=== PATIENT | female | born 1955 | race Two or more races ===

== ENCOUNTER 2025-02-18 10:28 | Inpatient (IN) | payer MEDICARE ==
[~2025-02-18] VITALS: Ht 157.5 cm; Wt 82.1 kg
[2025-02-18 11:15] LABS: PLATELET COUNT (AUTO) 311 K/uL (150-450); RED BLOOD CELL COUNT(AUTO) 4.63 MIL/uL (4.0-5.2); RED CELL DISTRIBUTION WIDTH 14.6 % (11.5-15.0); WHITE BLOOD COUNT (AUTO) 8.6 K/uL (4.3-11.0)
[2025-02-18] MEDS ORDERED: LORA2TAB95 PO (11:19)
[2025-02-18] MEDS ORDERED: HYDR-3980 PO (11:19)
[2025-02-18 11:23] LABS: CALCIUM, SERUM 9.6 mg/dL (8.5-10.1); CREATININE 0.8 mg/dL (0.6-1.3); SODIUM SERUM 144 mmol/L (136-145); UREA NITROGEN, BLOOD 18 mg/dL (7-18)
[2025-02-18] MEDS ORDERED: METOPROLOL TARTRATE 50 MG TABLET ONE (11:28)
[2025-02-18] MEDS ORDERED: METOPROLOL TARTRATE INJ 5 MG/5 ML AMPUL ONE (11:28)
[2025-02-18] MEDS ORDERED: METOPROLOL TARTRATE 25 MG TABLET PO ONE (11:30)
[2025-02-18] MEDS: METOPROLOL TARTRATE INJ 5 MG/5 ML AMPUL IV ONE (11:33)
[2025-02-18 11:35] LABS: ASPARTATE AMINOTRANSFERASE 26 U/L (15-37); NT-PRO BNP 510 pg/mL (0-125); TOTAL PROTEIN, SERUM 6.8 g/dL (6.4-8.2)
[2025-02-18] MEDS ORDERED: METOPROLOL TARTRATE 25 MG TABLET ONE (11:45)
[2025-02-18] MEDS: METOPROLOL TARTRATE 25 MG TABLET PO ONE (11:45)
[2025-02-18] MEDS ORDERED: MORPHINE SULFATE INJ 2 MG/ML DISP.SYRIN ONE (11:46)
[2025-02-18] MEDS: MORPHINE SULFATE INJ 2 MG/ML DISP.SYRIN IV ONE (11:50)
[2025-02-18] MEDS ORDERED: ONDANSETRON HCL/PF 4 MG/2 ML VIAL IVP PRN (13:30)
[2025-02-18] MEDS ORDERED: ACETAMINOPHEN 325 MG TABLET PO PRN (13:30)
[2025-02-18] MEDS: ENOXAPARIN SODIUM 40 MG/0.4 ML DISP.SYRIN SQ SCH (15:23)
[2025-02-18] MEDS: HYDROCODONE/APAP 10/325MG TABLET PO PRN (15:24)
[2025-02-18] MEDS: MORPHINE SULFATE INJ 2 MG/ML DISP.SYRIN IV PRN (17:34)
[2025-02-18] MEDS: METHOCARBAMOL (500MG) 500 MG TABLET PO SCH (17:34)
[2025-02-18 20:00] VITALS: BP 111/59; TEMP 98.8; O2SAT 94
[2025-02-18] MEDS: MORPHINE SULFATE INJ 4 MG/ML DISP.SYRIN IV PRN (22:12)
[2025-02-19] VITALS: BP_SYST 102; BP_SYST 111; BP_DIAS 59; BP_DIAS 72; TEMP 97.5; TEMP 98.8; O2SAT 94; O2SAT 95
[2025-02-19 04:00] VITALS: BP 108/75; TEMP 98.3; O2SAT 96
[2025-02-19 07:11] LABS: PLATELET COUNT (AUTO) 278 K/uL (150-450); RED BLOOD CELL COUNT(AUTO) 4.11 MIL/uL (4.0-5.2); RED CELL DISTRIBUTION WIDTH 14.7 % (11.5-15.0); WHITE BLOOD COUNT (AUTO) 5.3 K/uL (4.3-11.0)
[2025-02-19 07:17] LABS: CALCIUM, SERUM 9.1 mg/dL (8.5-10.1); CREATININE 0.5 mg/dL (0.6-1.3); PHOSPHORUS 2.9 mg/dL (2.5-4.9); SODIUM SERUM 142 mmol/L (136-145); UREA NITROGEN, BLOOD 16 mg/dL (7-18)
[2025-02-19 07:39] LABS: APPEARANCE,URINE SLIGHTLY CLOUDY (CLEAR); BLOOD, URINE NEGATIVE Ery/uL (NEGATIVE); LEUKOCYTE ESTERASE ,URINE TRACE (NEGATIVE); NITRITE, URINE NEGATIVE (NEGATIVE); UGLUCOSE NEGATIVE (NEGATIVE)
[2025-02-19 07:54] LABS: ADD URINE CULTURE YES
[2025-02-19 07:55] LABS: CALCIUM OXALATE CRYSTALS,UR Many /HPF (None Seen)
[2025-02-19 08:00] VITALS: BP 126/54; TEMP 98.4; O2SAT 98
[2025-02-19 08:03] LABS: LDL 56 mg/dL (0-99)
[2025-02-19] MEDS: FUROSEMIDE 40 MG/4 ML VIAL IV SCH (08:18)
[2025-02-19] MEDS: POTASSIUM CHLORIDE 20 MEQ TAB.PRT.SR PO SCH (08:18)
[2025-02-19] MEDS: PANTOPRAZOLE 40 MG TABLET.DR PO SCH (08:18)
[2025-02-19] MEDS: ATORVASTATIN 10 MG TABLET PO SCH (08:19)
[2025-02-19] MEDS: ASPIRIN 81 MG TAB.CHEW PO SCH (08:19)
[2025-02-19] MEDS: ENOXAPARIN SODIUM 80 MG/0.8 ML DISP.SYRIN SQ SCH (08:20)
[2025-02-19] MEDS ORDERED: POLYETHYLENE GLYCOL 3350 17 GM POWD.PACK PO PRN (09:00)
[2025-02-19] MEDS: DOCUSATE SODIUM 100 MG CAPSULE PO SCH (10:11)
[2025-02-19] MEDS: CEFTRIAXONE 1 G in IV D5W 50 ML IV SCH (10:12)
[2025-02-19 12:00] VITALS: BP 100/69; TEMP 99.5; O2SAT 94
[2025-02-19] MEDS: DIGOXIN INJ 0.5 MG/2 ML AMPUL IV SCH (12:43)
[2025-02-19 16:00] VITALS: BP 126/72; TEMP 98.6; O2SAT 94
[2025-02-19] MEDS: LORAZEPAM 1 MG TABLET PO PRN (16:43)
[2025-02-19 20:00] VITALS: BP 106/90; TEMP 98.4; O2SAT 93
[2025-02-20] VITALS: BP 107/88; TEMP 99; O2SAT 93
[2025-02-20 04:00] VITALS: BP 105/71; TEMP 98.6; O2SAT 93
[2025-02-20 06:13] LABS: PLATELET COUNT (AUTO) 353 K/uL (150-450); RED BLOOD CELL COUNT(AUTO) 4.46 MIL/uL (4.0-5.2); RED CELL DISTRIBUTION WIDTH 14.2 % (11.5-15.0); WHITE BLOOD COUNT (AUTO) 5.6 K/uL (4.3-11.0)
[2025-02-20 07:31] LABS: ASPARTATE AMINOTRANSFERASE 26 U/L (15-37); CALCIUM, SERUM 9.3 mg/dL (8.5-10.1); CREATININE 0.6 mg/dL (0.6-1.3); PHOSPHORUS 3.4 mg/dL (2.5-4.9); SODIUM SERUM 139 mmol/L (136-145); TOTAL PROTEIN, SERUM 6.3 g/dL (6.4-8.2); UREA NITROGEN, BLOOD 14 mg/dL (7-18)
[2025-02-20 08:00] VITALS: BP 132/84; TEMP 98; O2SAT 93
[2025-02-20] MEDS: METOPROLOL TARTRATE 25 MG TABLET PO SCH (09:15)
[2025-02-20 12:00] VITALS: BP 114/69; TEMP 98.3; O2SAT 94
[2025-02-20] MEDS: DIGOXIN 0.25 MG TABLET PO SCH (12:04)
[2025-02-20 16:00] VITALS: BP 124/58; TEMP 97.9; O2SAT 95
[2025-02-20 22:00] VITALS: BP 132/72; TEMP 98.2; O2SAT 96
[2025-02-21] VITALS (9 sets, daily range): BP systolic 121–128; BP diastolic 60–96; TEMP 98.1–99.1; O2SAT 96–98
[2025-02-21 06:32] LABS: PLATELET COUNT (AUTO) 344 K/uL (150-450); RED BLOOD CELL COUNT(AUTO) 4.45 MIL/uL (4.0-5.2); RED CELL DISTRIBUTION WIDTH 14.7 % (11.5-15.0); WHITE BLOOD COUNT (AUTO) 4.4 K/uL (4.3-11.0)
[2025-02-21 06:38] LABS: INR 1.04 (0.91-1.10)
[2025-02-21 07:07] LABS: CALCIUM, SERUM 9.6 mg/dL (8.5-10.1); CREATININE 0.6 mg/dL (0.6-1.3); PHOSPHORUS 3.5 mg/dL (2.5-4.9); SODIUM SERUM 136.0 mmol/L (136-145); UREA NITROGEN, BLOOD 13.0 mg/dL (7-18)
[2025-02-21] MEDS: HEPARIN SODIUM, PORCINE 5000 UNITS/1 ML VIAL SQ SCH (08:11)
[2025-02-21] MEDS: METOPROLOL TARTRATE 25 MG TABLET PO SCH (09:31)
[2025-02-22] VITALS: BP 148/80; TEMP 97.9; O2SAT 94
[2025-02-22 04:00] VITALS: BP 118/64; TEMP 97.9; O2SAT 94
[2025-02-22 06:51] LABS: PLATELET COUNT (AUTO) 337 K/uL (150-450); RED BLOOD CELL COUNT(AUTO) 4.33 MIL/uL (4.0-5.2); RED CELL DISTRIBUTION WIDTH 14.3 % (11.5-15.0); WHITE BLOOD COUNT (AUTO) 5.2 K/uL (4.3-11.0)
[2025-02-22 07:04] LABS: CALCIUM, SERUM 9.5 mg/dL (8.5-10.1); CREATININE 0.6 mg/dL (0.6-1.3); PHOSPHORUS 3.4 mg/dL (2.5-4.9); SODIUM SERUM 137.0 mmol/L (136-145); UREA NITROGEN, BLOOD 10.0 mg/dL (7-18)
[2025-02-22] MEDS ORDERED: CEFAZOLIN 1 GM ONE (07:28)
[2025-02-22] MEDS ORDERED: TRIAMCINOLONE ACETONIDE SUSP 40 MG/ML 1 ML ONE (07:28)
[2025-02-22] MEDS ORDERED: HEMOSTATIC MATRIX 8 ML 1 EACH PAD MC ONE ×2 (07:28→11:42)
[2025-02-22] MEDS ORDERED: LIDOCAINE 0.5%-EPI 1:200,000 50 ML VIAL ONE (07:28)
[2025-02-22] MEDS ORDERED: MIDAZOLAM HCL 2 MG/2ML VIAL ONE (07:38)
[2025-02-22] MEDS ORDERED: FENTANYL PF 250MCG/5ML AMPUL ONE (07:38)
[2025-02-22] MEDS ORDERED: SUGAMMADEX SODIUM 200 MG/2 ML VIAL IV ONE (07:38)
[2025-02-22] MEDS ORDERED: ROCURONIUM BROMIDE 50 MG/5 ML ONE (07:39)
[2025-02-22] MEDS ORDERED: HEPARIN SODIUM, PORCINE 5000 UNITS/1 ML VIAL ONE (07:42)
[2025-02-22 08:00] VITALS: BP 113/76; TEMP 98.1; O2SAT 98
[2025-02-22] MEDS: POTASSIUM CL. PREMIX PERIPHER. 50 ML IV SCH (09:15)
[2025-02-22] MEDS ORDERED: LABETALOL HCL IV 100MG VIAL ONE (11:49)
[2025-02-22 12:00] VITALS: BP 113/76; TEMP 98.1; O2SAT 98
[2025-02-22] MEDS ORDERED: VANCOMYCIN 1 GM VIAL ONE (13:59)
[2025-02-22] MEDS ORDERED: FENTANYL PF 100MCG/2ML AMPUL ONE (15:06)
[2025-02-22] MEDS ORDERED: HYDROMORPHONE 1 MG/1 ML DISP.SYRIN ONE (15:31)
[2025-02-22 16:00] VITALS: BP 121/52; TEMP 97.3; O2SAT 98
[2025-02-22] MEDS ORDERED: ACETAMINOPHEN 325 MG TABLET PO PRN (17:00)
[2025-02-22] MEDS: IV NS W/20MEQ KCL 1L IV PRN (17:48)
[2025-02-22 20:00] VITALS: BP 123/16; TEMP 97.7; O2SAT 96
[2025-02-22] MEDS: HYDROMORPHONE 1 MG/1 ML DISP.SYRIN IV PRN (20:19)
[2025-02-23] VITALS: BP 121/65; TEMP 97.7; O2SAT 98
[2025-02-23 04:00] VITALS: BP 136/82; TEMP 98; O2SAT 99
[2025-02-23 07:18] LABS: PLATELET COUNT (AUTO) 300 K/uL (150-450); RED BLOOD CELL COUNT(AUTO) 3.67 MIL/uL (4.0-5.2); RED CELL DISTRIBUTION WIDTH 14.9 % (11.5-15.0); WHITE BLOOD COUNT (AUTO) 10.9 K/uL (4.3-11.0)
[2025-02-23 07:44] LABS: CALCIUM, SERUM 8.3 mg/dL (8.5-10.1); CREATININE 0.5 mg/dL (0.6-1.3); PHOSPHORUS 3.2 mg/dL (2.5-4.9); SODIUM SERUM 134.0 mmol/L (136-145); UREA NITROGEN, BLOOD 14.0 mg/dL (7-18)
[2025-02-23 08:00] VITALS: BP 133/83; TEMP 98.1; O2SAT 99
[2025-02-23] MEDS: HEPARIN SODIUM, PORCINE 5000 UNITS/1 ML VIAL SQ SCH (09:10)
[2025-02-23 12:00] VITALS: BP 141/82; TEMP 97.9; O2SAT 99
[2025-02-23 16:00] VITALS: BP 139/62; TEMP 98.8; O2SAT 98
[2025-02-23] MEDS: IV NS W/20MEQ KCL 1L IV SCH (17:27)
[2025-02-23] MEDS: MAG HYDROX/AL HYDROX/SIMETH 30 ML UDC PO PRN (17:34)
[2025-02-23 20:00] VITALS: BP 133/68; TEMP 98.2; O2SAT 99
[2025-02-24] VITALS (7 sets, daily range): BP systolic 121–153; BP diastolic 55–78; TEMP 97.9–98.6; O2SAT 94–100
[2025-02-24 07:48] LABS: CALCIUM, SERUM 8.5 mg/dL (8.5-10.1); CREATININE 0.5 mg/dL (0.6-1.3); SODIUM SERUM 130.0 mmol/L (136-145); UREA NITROGEN, BLOOD 10.0 mg/dL (7-18)
[2025-02-24] MEDS: SPIRONOLACTONE 25 MG TABLET PO SCH (10:04)
[2025-02-24] MEDS: METOPROLOL TARTRATE 25 MG TABLET PO SCH (10:05)
[2025-02-24] MEDS: MAGNESIUM HYDROXIDE 30 ML UDC PO PRN (13:03)
[2025-02-25 00:21] VITALS: BP 130/63; TEMP 98.6; O2SAT 100
[2025-02-25 04:09] VITALS: BP 124/55; TEMP 98.4; O2SAT 100
[2025-02-25 06:20] LABS: CALCIUM, SERUM 8.1 mg/dL (8.5-10.1); CREATININE 0.4 mg/dL (0.6-1.3); SODIUM SERUM 131.0 mmol/L (136-145); UREA NITROGEN, BLOOD 7.0 mg/dL (7-18)
[2025-02-25 08:00] VITALS: BP 107/52; TEMP 98.4; O2SAT 98
[2025-02-25 12:00] VITALS: BP 118/53; TEMP 98.4; O2SAT 98
[2025-02-25 12:17] VITALS: BP 115/65
== END 2025-02-25 14:10 | DRG 447 ==
LOC: ER 10:42 → TELE1 13:04 → TELE-TD 02-22 19:12 → TELE1 02-23 08:54 → MEDSG1 02-24 09:26 → TELE1 02-24 12:48 → MEDSG1 02-25 10:32
PROVIDERS: ADMIT Nurse Practitioner Family; ATTEND Nurse Practitioner Acute Care
PROC: 0RG7071 Fusion of 2 to 7 Thoracic Vertebral Joints with Autologous Tissue Substitute, Posterior Approach, Posterior Column, Open Approach (ICD-10-PCS; 2025-02-22)
PROC: 00NY0ZZ Release Lumbar Spinal Cord, Open Approach (ICD-10-PCS; 2025-02-22)
PROC: 0RGA071 Fusion of Thoracolumbar Vertebral Joint with Autologous Tissue Substitute, Posterior Approach, Posterior Column, Open Approach (ICD-10-PCS; 2025-02-22)
PROC: 0SG0071 Fusion of Lumbar Vertebral Joint with Autologous Tissue Substitute, Posterior Approach, Posterior Column, Open Approach (ICD-10-PCS; 2025-02-22)
PROC: 00NX0ZZ Release Thoracic Spinal Cord, Open Approach (ICD-10-PCS; principal; 2025-02-22 09:30)
DX: M48.55XA Collapsed vertebra, not elsewhere classified, thoracolumbar region, initial encounter for fracture (principal); I50.23 Acute on chronic systolic (congestive) heart failure; D68.59 Other primary thrombophilia; E87.1 Hypo-osmolality and hyponatremia; I11.0 Hypertensive heart disease with heart failure; N39.0 Urinary tract infection, site not specified; B96.89 Other specified bacterial agents as the cause of diseases classified elsewhere; E66.9 Obesity, unspecified; I48.92 Unspecified atrial flutter; I42.9 Cardiomyopathy, unspecified; M48.05 Spinal stenosis, thoracolumbar region; G89.29 Other chronic pain; M53.2X4 Spinal instabilities, thoracic region; I25.10 Atherosclerotic heart disease of native coronary artery without angina pectoris; Z53.20 Procedure and treatment not carried out because of patient's decision for unspecified reasons; M85.80 Other specified disorders of bone density and structure, unspecified site; Z95.1 Presence of aortocoronary bypass graft; Z85.028 Personal history of other malignant neoplasm of stomach; Z91.81 History of falling; Z79.899 Other long term (current) drug therapy; Z74.01 Bed confinement status; Z68.32 Body mass index [BMI] 32.0-32.9, adult; F41.9 Anxiety disorder, unspecified; E78.5 Hyperlipidemia, unspecified; I48.91 Unspecified atrial fibrillation; K59.00 Constipation, unspecified
CPT/HCPCS: 36415; 71045-TC; 72070-TC; 72100-TC; 72128-TC; 72131-TC; 72148-TC; 80048-TC; 80053-TC; 80061-TC; 80076-TC; 81001; 83735-TC; 83880; 84100-TC; 84484-TC; 85025-TC; 85610-TC; 87086-TC; 93307-TC; 93970-TC; 97110-TC; 97116-TC; 97530-TC; 97535-TC; A4223; C1713; C1751; C1889; G0378; J0690; J0696; J1160; J1171; J1644; J1650; J1938; J2250; J2270; J2704; J3010; J3373; J3480; J3490; J7030; J7040; J7050; J7060

== ENCOUNTER 2025-03-30 16:29 | Inpatient (IN) | payer MEDICARE, OTHER ==
[~2025-03-30] VITALS: Ht 162.6 cm; Wt 75.3 kg
[~2025-03-30 16:29] MED LIST: HYDR-3980 PO; LORA2TAB95 PO
[2025-03-30] MEDS ORDERED: MORPHINE SULFATE INJ 4 MG/ML DISP.SYRIN ONE ×2 (19:04→20:38)
[2025-03-30 19:09] LABS: PLATELET COUNT (AUTO) 282 K/uL (150-450); RED BLOOD CELL COUNT(AUTO) 4.21 MIL/uL (4.0-5.2); RED CELL DISTRIBUTION WIDTH 15.2 % (11.5-15.0); WHITE BLOOD COUNT (AUTO) 6.2 K/uL (4.3-11.0)
[2025-03-30 19:12] LABS: ERYTHROCYTE SEDIMENTATION RATE 12 MM/HR (0-30)
[2025-03-30] MEDS: MORPHINE SULFATE INJ 2 MG/ML DISP.SYRIN IV ONE (19:12)
[2025-03-30] MEDS: VANCOMYCIN HCL 1.25 GM in IV D5W 260 ML IV ONE (19:13)
[2025-03-30 19:17] LABS: CALCIUM, SERUM 8.6 mg/dL (8.5-10.1); CREATININE 0.6 mg/dL (0.6-1.3); SODIUM SERUM 140.0 mmol/L (136-145); UREA NITROGEN, BLOOD 12.0 mg/dL (7-18)
[2025-03-30 19:22] LABS: INR 1.26 (0.91-1.10)
[2025-03-30] MEDS ORDERED: METO50TA16 PO (19:34)
[2025-03-30] MEDS ORDERED: METH500T6 PO (19:34)
[2025-03-30] MEDS ORDERED: SPIR25TA6 PO (19:34)
[2025-03-30] MEDS ORDERED: AMIO200T5 PO (19:34)
[2025-03-30] MEDS ORDERED: ATOR10TA PO (19:34)
[2025-03-30] MEDS ORDERED: PANT40TA49 PO (19:34)
[2025-03-30] MEDS ORDERED: OXYC10TA49 PO (19:34)
[2025-03-30] MEDS ORDERED: ASPI-495 PO (19:34)
[2025-03-30] MEDS ORDERED: PREG-57 PO (19:34)
[2025-03-30] MEDS ORDERED: APIX5TAB PO (19:34)
[2025-03-30] MEDS ORDERED: IOHEXOL-300 100 ML VIAL IV ONE (19:38)
[2025-03-30] MEDS ORDERED: IV NS 0.9% 250 ML IV ONE (19:39)
[2025-03-30] MEDS ORDERED: ONDANSETRON HCL/PF 4 MG/2 ML VIAL IVP PRN (20:30)
[2025-03-30] MEDS ORDERED: DOSING PER PHARMACY-VANCOMYCIN IV XX PRN (20:30)
[2025-03-30] MEDS ORDERED: Z GUARD REMEDY 4 OZ OINT TP PRN (20:30)
[2025-03-30] MEDS: MORPHINE SULFATE INJ 2 MG/ML DISP.SYRIN IV PRN (20:42)
[2025-03-30 21:32] VITALS: BP 129/59; TEMP 98.2; O2SAT 96
[2025-03-30] MEDS: TEMAZEPAM 15 MG CAPSULE PO PRN (23:14)
[2025-03-31] MEDS: HYDROCODONE/APAP 5/325MG TABLET PO PRN (03:48)
[2025-03-31] MEDS: VANCOMYCIN 750 MG in IV D5W 250 ML IV SCH (06:02)
[2025-03-31 06:26] LABS: PLATELET COUNT (AUTO) 237 K/uL (150-450); RED BLOOD CELL COUNT(AUTO) 3.70 MIL/uL (4.0-5.2); RED CELL DISTRIBUTION WIDTH 15.9 % (11.5-15.0); WHITE BLOOD COUNT (AUTO) 4.9 K/uL (4.3-11.0)
[2025-03-31 06:54] LABS: CALCIUM, SERUM 8.1 mg/dL (8.5-10.1); CREATININE 0.4 mg/dL (0.6-1.3); PHOSPHORUS 3.5 mg/dL (2.5-4.9); SODIUM SERUM 136.0 mmol/L (136-145); UREA NITROGEN, BLOOD 12.0 mg/dL (7-18)
[2025-03-31] MEDS: PANTOPRAZOLE 40 MG TABLET.DR PO SCH (07:40)
[2025-03-31 08:00] VITALS: BP 122/56; TEMP 97.5; O2SAT 97
[2025-03-31 15:00] VITALS: BP 122/58; TEMP 98.1; O2SAT 100
[2025-03-31] MEDS ORDERED: GADOTERATE MEGLUMINE 10 MMOL/20 ML VIAL IV ONE (15:40)
[2025-03-31] MEDS: METHOCARBAMOL (500MG) 500 MG TABLET PO SCH (16:23)
[2025-03-31] MEDS: oxyCODONE IR immediate release 5 MG TABLET PO PRN (16:23)
[2025-03-31] MEDS: METOPROLOL TARTRATE 50 MG TABLET PO SCH (16:24)
[2025-03-31] MEDS: ENOXAPARIN SODIUM 80 MG/0.8 ML DISP.SYRIN SQ SCH (16:25)
[2025-03-31] MEDS: PREGABALIN 25 MG CAPSULE PO SCH (16:27)
[2025-03-31] MEDS: ACETAMINOPHEN 325 MG TABLET PO PRN (19:01)
[2025-03-31] MEDS: VANCOMYCIN 1 GM in IV D5W 250 ML IV SCH (19:10)
[2025-03-31 20:00] VITALS: BP 101/55; TEMP 98.1; O2SAT 98
[2025-03-31] MEDS ORDERED: KETOROLAC TROMETHAMINE INJ 30 MG/ML VIAL IV PRN (20:30)
[2025-03-31] MEDS ORDERED: HEPARIN SODIUM, PORCINE 5000 UNITS/1 ML VIAL SQ SCH (21:00)
[2025-03-31] MEDS: ATORVASTATIN 10 MG TABLET PO SCH (21:39)
[2025-03-31] MEDS: CEFTRIAXONE 1GM BAG (ER ONLY) 50 ML IV ONE (21:40)
[2025-03-31] MEDS: CEFTRIAXONE 1 G in IV D5W 50 ML IV SCH (21:43)
[2025-03-31] MEDS ORDERED: IV PREMIX NS +20MEQ KCL 1 L IV ONE (23:11)
[2025-03-31] MEDS: MAG HYDROX/AL HYDROX/SIMETH 30 ML UDC PO PRN (23:35)
[2025-03-31] MEDS: Potassium Chloride 20 MEQ in IV NS 0.9% 1,000 ML IV PRN (23:40)
[2025-03-31 23:56] VITALS: BP 101/55; TEMP 98.1; O2SAT 98
[2025-04-01 06:45] LABS: PLATELET COUNT (AUTO) 243 K/uL (150-450); RED BLOOD CELL COUNT(AUTO) 3.58 MIL/uL (4.0-5.2); RED CELL DISTRIBUTION WIDTH 15.4 % (11.5-15.0); WHITE BLOOD COUNT (AUTO) 4.2 K/uL (4.3-11.0)
[2025-04-01 06:50] LABS: INR 1.16 (0.91-1.10)
[2025-04-01 06:55] LABS: PHOSPHORUS 4.3 mg/dL (2.5-4.9)
[2025-04-01 06:59] LABS: CALCIUM, SERUM 7.8 mg/dL (8.5-10.1); CREATININE 0.4 mg/dL (0.6-1.3); SODIUM SERUM 140.0 mmol/L (136-145); UREA NITROGEN, BLOOD 7.0 mg/dL (7-18)
[2025-04-01] MEDS: SPIRONOLACTONE 25 MG TABLET PO SCH (08:14)
[2025-04-01] MEDS: AMIODARONE HCL 200 MG TABLET PO SCH (08:14)
[2025-04-01 09:39] VITALS: BP 88/47; TEMP 97.2; O2SAT 96
[2025-04-01] MEDS ORDERED: VANCOMYCIN 1 GM VIAL ONE ×3 (11:22→12:36)
[2025-04-01] MEDS ORDERED: CEFAZOLIN 1 GM ONE ×3 (11:22→12:36)
[2025-04-01] MEDS ORDERED: LIDOCAINE 0.5%-EPI 1:200,000 50 ML VIAL ONE ×2 (11:22→12:23)
[2025-04-01] MEDS ORDERED: CELLULOSE,OXIDIZED 1 EA PACK MC ONE (11:23)
[2025-04-01] MEDS ORDERED: HEMOSTATIC MATRIX 8 ML 1 EACH PAD MC ONE (11:23)
[2025-04-01] MEDS ORDERED: CELLULOSE,OXIDIZED 1 EACH EACH MC ONE (11:23)
[2025-04-01] MEDS ORDERED: CELLULOSE,OXIDIZED 1 PKT EACH MC ONE (11:23)
[2025-04-01] MEDS ORDERED: FENTANYL PF 250MCG/5ML AMPUL ONE (11:26)
[2025-04-01] MEDS ORDERED: ROCURONIUM BROMIDE 50 MG/5 ML ONE (11:26)
[2025-04-01] MEDS ORDERED: POLYMYXIN B SULFATE 500,000 UNITS ONE ×2 (11:30→12:36)
[2025-04-01] MEDS ORDERED: FENTANYL PF 100MCG/2ML AMPUL ONE (13:08)
[2025-04-01] MEDS: FENTANYL PF 100MCG/2ML AMPUL IV PRN (13:16)
[2025-04-01] MEDS: HYDROCODONE/APAP 5/325MG TABLET PO PRN (14:14)
[2025-04-01] MEDS ORDERED: BISACODYL SUPP (10 MG) 10 MG/SUPP.RECT SUPP.RECT RC PRN (14:30)
[2025-04-01] MEDS ORDERED: SENNOSIDES 8.6 MG TABLET PO PRN (14:30)
[2025-04-01] MEDS: IV NS W/20MEQ KCL 1L IV PRN (15:27)
[2025-04-01 16:00] VITALS: BP 123/102; TEMP 98.1; O2SAT 98
[2025-04-01] MEDS: HYDROMORPHONE 1 MG/1 ML DISP.SYRIN IV PRN (16:32)
[2025-04-01 20:00] VITALS: BP 109/55; TEMP 98.1; O2SAT 99
[2025-04-02 07:00] VITALS: BP 107/44; TEMP 99.1; O2SAT 97
[2025-04-02 07:02] LABS: PLATELET COUNT (AUTO) 237 K/uL (150-450); RED BLOOD CELL COUNT(AUTO) 3.64 MIL/uL (4.0-5.2); RED CELL DISTRIBUTION WIDTH 15.8 % (11.5-15.0); WHITE BLOOD COUNT (AUTO) 5.6 K/uL (4.3-11.0)
[2025-04-02 07:09] LABS: CALCIUM, SERUM 8.2 mg/dL (8.5-10.1); CREATININE 0.4 mg/dL (0.6-1.3); SODIUM SERUM 142.0 mmol/L (136-145); UREA NITROGEN, BLOOD 3.0 mg/dL (7-18)
[2025-04-02 07:10] LABS: PHOSPHORUS 3.6 mg/dL (2.5-4.9)
[2025-04-02 09:44] VITALS: BP 103/89
[2025-04-02 10:12] VITALS: BP 100/50
[2025-04-02 15:00] VITALS: BP 100/49; TEMP 99.1; O2SAT 94
[2025-04-02 20:00] VITALS: BP 98/58; TEMP 98.4; O2SAT 97
[2025-04-03 06:33] LABS: PLATELET COUNT (AUTO) 193 K/uL (150-450); RED BLOOD CELL COUNT(AUTO) 3.20 MIL/uL (4.0-5.2); RED CELL DISTRIBUTION WIDTH 15.9 % (11.5-15.0); WHITE BLOOD COUNT (AUTO) 3.6 K/uL (4.3-11.0)
[2025-04-03 07:00] LABS: CALCIUM, SERUM 8.0 mg/dL (8.5-10.1); CREATININE 0.4 mg/dL (0.6-1.3); SODIUM SERUM 141.0 mmol/L (136-145); UREA NITROGEN, BLOOD 2.0 mg/dL (7-18)
[2025-04-03 07:12] LABS: PHOSPHORUS 3.3 mg/dL (2.5-4.9)
[2025-04-03 08:00] VITALS: BP 116/74; TEMP 98.2; O2SAT 96
[2025-04-03] MEDS: ONDANSETRON HCL/PF 4 MG/2 ML VIAL IV PRN (09:18)
[2025-04-03] MEDS: DOCUSATE SODIUM 250 MG CAPSULE PO PRN (09:45)
[2025-04-03 14:24] VITALS: BP 105/46; TEMP 98.1; O2SAT 100
[2025-04-03 16:00] VITALS: BP 111/60; TEMP 97.8; O2SAT 97
[2025-04-03 20:00] VITALS: BP 112/52; TEMP 97.9; O2SAT 100
[2025-04-03] MEDS: VANCOMYCIN 750 MG in IV D5W 250 ML IV SCH (20:17)
[2025-04-03] MEDS: MAGNESIUM HYDROXIDE 30 ML UDC PO PRN (20:49)
[2025-04-04 06:44] LABS: CALCIUM, SERUM 7.8 mg/dL (8.5-10.1); CREATININE 0.4 mg/dL (0.6-1.3); SODIUM SERUM 141.0 mmol/L (136-145); UREA NITROGEN, BLOOD 2.0 mg/dL (7-18)
[2025-04-04 08:00] VITALS: BP 101/51; TEMP 97.9; O2SAT 96
[2025-04-04] MEDS ORDERED: VANC750F2 IV (10:51)
[2025-04-04] MEDS ORDERED: METH-647 PO (10:55)
[2025-04-04 18:00] VITALS: BP 115/60
== END 2025-04-04 20:17 | DRG 920 ==
LOC: ER 18:00 → MED 20:51
PROVIDERS: ADMIT Nurse Practitioner Acute Care; ATTEND Nurse Practitioner Family
PROC: 0J970ZZ Drainage of Back Subcutaneous Tissue and Fascia, Open Approach (ICD-10-PCS; principal; 2025-04-01 10:30)
DX: T81.31XA Disruption of external operation (surgical) wound, not elsewhere classified, initial encounter (principal); I50.22 Chronic systolic (congestive) heart failure; I96 Gangrene, not elsewhere classified; I11.0 Hypertensive heart disease with heart failure; I48.0 Paroxysmal atrial fibrillation; L03.818 Cellulitis of other sites; Z79.01 Long term (current) use of anticoagulants; B95.62 Methicillin resistant Staphylococcus aureus infection as the cause of diseases classified elsewhere; E66.9 Obesity, unspecified; M48.54XA Collapsed vertebra, not elsewhere classified, thoracic region, initial encounter for fracture; Y83.8 Other surgical procedures as the cause of abnormal reaction of the patient, or of later complication, without mention of misadventure at the time of the procedure; Y92.009 Unspecified place in unspecified non-institutional (private) residence as the place of occurrence of the external cause; Z85.028 Personal history of other malignant neoplasm of stomach; Z98.1 Arthrodesis status; Z86.79 Personal history of other diseases of the circulatory system; G89.29 Other chronic pain; F41.9 Anxiety disorder, unspecified; Z79.82 Long term (current) use of aspirin; Z79.891 Long term (current) use of opiate analgesic; Z95.1 Presence of aortocoronary bypass graft; I25.10 Atherosclerotic heart disease of native coronary artery without angina pectoris; Z79.899 Other long term (current) drug therapy; M51.35 Other intervertebral disc degeneration, thoracolumbar region; M47.816 Spondylosis without myelopathy or radiculopathy, lumbar region; Z68.28 Body mass index [BMI] 28.0-28.9, adult
CPT/HCPCS: 36415; 72129-TC; 72132-TC; 72158-TC; 80048-TC; 80202-TC; 82962-TC; 83735-TC; 84100-TC; 85025-TC; 85610-TC; 85652-TC; 85730-TC; 86140-TC; 86850-TC; 87040-TC; 87070-TC; 87075-TC; 87081-TC; 97110-TC; 97116-TC; 97530-TC; 97535-TC; A4223; A6253; A9575; G0378; J0461; J0690; J0696; J1171; J1650; J2270; J2405; J2704; J3010; J3373; J3374; J3480; J3490; J7030; J7040; J7050; J7060; Q9967